=== PATIENT | male | born 1985 | race Caucasian/White ===

== ENCOUNTER 2022-01-26 15:47 | Emergency (ER) | payer SELFPAY ==
[~2022-01-26] VITALS: Ht 165.1 cm; Wt 86.0 kg
[2022-01-26] MEDS ORDERED: IBUPROFEN 400MG TABLET PO ONE (22:45)
[2022-01-26] MEDS ORDERED: LIDOCAINE 5% PATCH TOP SCH (22:45)
[2022-01-26] MEDS ORDERED: ACETAMINOPHEN 325MG TABLET PO ONE (22:45)
[2022-01-27 01:20] VITALS: BP 113/65
== END 2022-01-27 01:21 | disposition home or self-care (01) ==
LOC: ER 16:05
DX: R51.9 Headache, unspecified (principal); M54.59 Other low back pain; R53.1 Weakness; G89.11 Acute pain due to trauma; D35.4 Benign neoplasm of pineal gland; J32.3 Chronic sphenoidal sinusitis; J32.0 Chronic maxillary sinusitis; W11.XXXA Fall on and from ladder, initial encounter; Y93.89 Activity, other specified; Y92.89 Other specified places as the place of occurrence of the external cause
CPT/HCPCS: 99284